=== PATIENT | male | born 1940 | race Two or more races ===

== ENCOUNTER 2021-10-27 07:29 | Outpatient (CLI) | payer OTHER | END 2021-10-27 07:33 | disposition home or self-care (01) | LOC: RX STUDY 07:29 | PROVIDERS: ATTEND General Practice | DX: R13.10 Dysphagia, unspecified (principal) ==

== ENCOUNTER 2021-11-14 08:20 | Outpatient (CLI) | payer OTHER | END 2021-11-14 08:25 | disposition home or self-care (01) | LOC: TOM 08:20 | PROVIDERS: ATTEND General Practice | DX: R13.10 Dysphagia, unspecified (principal); K22.2 Esophageal obstruction | CPT/HCPCS: 70491; Q9965 ==